=== PATIENT | male | born 1940 | race Caucasian/White ===

== ENCOUNTER 2021-05-16 03:21 | Outpatient (CLI) | payer MEDICARE, SELFPAY ==
[2021-05-16 14:08] LABS: Source Nasal/Nares
[2021-05-16 17:40] LABS: COVID-19 PCR Negative (Negative)
== END 2021-05-16 03:22 | disposition home or self-care (01) ==
LOC: LBO 03:21
PROVIDERS: PCP Neuromusculoskeletal Medicine & OMM; Visit Provider Ophthalmology
DX: Z20.822 Contact with and (suspected) exposure to COVID-19 (principal); Z01.818 Encounter for other preprocedural examination
CPT/HCPCS: 87635

== ENCOUNTER 2021-05-19 11:52 | Day surgery (SDC) | payer MEDICARE, SELFPAY ==
[2021-05-19 12:11] VITALS: BP 169/87; PULSE 77; RESP 16; TEMP 36.3; O2SAT 99
[2021-05-19] MEDS: Tropicam./Phenyleph. (1/2.5%) 5 ML BTL OS ×3 (12:28→12:38)
--- NOTE | 2021-05-19 13:10 | ANES.PREOP_ITS ---
General Info Date of Service Date Performed: 05/19/21 Height: 5 ft 4 in Weight: 60.2 kg Body Mass Index (BMI): 22.8 Surgical Procedure: Operation Date: 05/19/21 15:40 Proposed Procedures Side Surgeon p Cataract Extraction with IOL Implant Left Alonso Barth MD Meds Allergies and Home Medications Allergies Allergy/AdvReac Type Severity Reaction Status Date / Time Penicillins Allergy Unknown Unverified 05/16/21 11:29 Home Medication Medication Instructions Recorded coQ10 (ubiquinol) 200 mg PO DAILY 05/15/21 cyanocobalamin (vitamin B-12) 1 tab PO DAILY 05/15/21 [Vitamin B-12] lisinopril 20 mg PO DAILY 05/15/21 multivitamin 1 tab PO DAILY 05/15/21 tamsulosin 0.4 mg PO DAILY 05/15/21 Current Visit Medications: Current Medications Generic Name Dose Route Start Last Admin Trade Name Freq PRN Reason Stop Dose Admin Acetaminophen 1,000 mg 05/19/21 06:58 Acetaminophen 500 Mg Tab PO Q4H PRN PRN Miscellaneous Medication 0 ml 05/19/21 06:58 Prednisolone 1%, Moxifloxacin 0.5%, Nepafenac 0.1% 5ml Btl OS DIRECTED LANDRY Miscellaneous Medication 0 ml 05/19/21 06:58 05/19/21 12:38 Tropicam./Phenyleph. (1/2.5%) 5 Ml Btl OS 1 drp DIRECTED LANDRY Administration Tetracaine HCl 0 ml 05/19/21 06:58 Tetracaine 0.5% 4 Ml Btl OS DIRECTED LANDRY PFSH Medical History Medical History Anemia Chronic deep vein thrombosis (DVT) of popliteal vein of right lower extremity 2015 Complete fecal incontinence Pt. denies this, states uriniation Disorder of vein Hepatitis C History of Mohs micrographic surgery for skin cancer Hypertensive disorder Impotence Left sided sciatica Localized edema Pain in right wrist Phlebosclerosis Raised prostate specific antigen Surgical History Surgical History (Updated 05/19/21 @ 12:24 by John Larsen) Hx of basal cell carcinoma excision Hx of tonsillectomy Tobacco Smoking/Tobacco Use Status: Current-Occasional Tobacco Type: cigars Alcohol Alcohol Intake: current Alcohol intake frequency: a few times a month Alcohol type: beer Substance Use Substance use: Never Substance use type: does not use Vital Signs and Lab Results Vital Signs Most Recent Vital Signs in EMR: Most Recent Vital Signs Temp Pulse Resp BP Pulse Ox 36.3 C L 77 16 169/87 H 99 05/19/21 12:11 05/19/21 12:11 05/19/21 12:11 05/19/21 12:11 05/19/21 12:11 Lab Results Blood Type / Crossmatch: No Data to Display Complete Blood Count: No Data to Display Complete Metabolic Panel: No Data to Display Liver Function Panel: No Data to Display Coagulation Panel: No Data to Display Cardiac Panel: No Data to Display Arterial Blood Gas: No Data to Display Venous Blood Gas: No Data to Display Pancreas Panel: No Data to Display Thyroid Panel: No Data to Display Infectious Disease: Coronavirus (COVID-19)(PCR) Negative (Negative) 05/16/21 10:31 05/16/21 Coronavirus 2019 Source Nasal/Nares 05/16/21 10:31 05/16/21 Blood Cultures: No Data to Display Toxicology Panel: No Data to Display Anesthesia Assessment and Plan Anesthesia History Personal History: No History of Anesthesia Complications Family History: No Family History of Anesthesia Complications Exercise Tolerance Exercise Tolerance: Metabolic Equivalents>4 Pertinent Negatives Pertinent Negatives: No Symptoms of GERD, No Major Cardiovascular Symptoms or Co mplaints, No Major Pulmonary Symptoms or Complaints and No History of CVA/TIA Cardiac & Pulmonary Exam Cardiac Exam: Normal S1/S2 Heart Sounds Pulmonary Exam: Clear Bilateral Breath Sounds Implantable Cardiac Device Does patient have a Pacemaker or an ICD?: No Airway Exam Known Difficult Airway: No Mallampati Class: 2 Mouth Opening: Normal (> 3cm) Thyromental Distance: Greater than 3 cm Neck Range of Motion: Full ROM Neck Circumference: Normal Teeth Condition: Normal Dentition and Other (Implants bottom) ASA Classification ASA Score: ASA 2 Emergency Case?: No NPO Status NPO Status: NPO Clears >2 hours, Solids >8 hours Anesthesia Plan Resuscitation Status: Full Code Anesthesia Technique: MAC Anesthesia Airway Planned: Natural Airway Monitors Used: Standard Monitors
[2021-05-19 13:13] VITALS: BMI 22.8
[2021-05-19] MEDS: Lidocaine 2% Jelly 6 ML SYR (13:26)
[2021-05-19] MEDS: Povidone-Iodine Ophth 30 ML BTL (13:26)
[2021-05-19] MEDS: Tetracaine 0.5% 4 ML BTL OS (13:26)
[2021-05-19] MEDS: Lidocaine 1% Pres-Free 5 ML VIAL (13:33)
[2021-05-19] MEDS: Balanced Salt Soln.-PLUS 500 ML BAG (13:35)
[2021-05-19] MEDS: Duovisc Viscoelastic System EACH 1 EACH (13:35)
[2021-05-19 14:00] VITALS: BP 170/91; PULSE 74; RESP 16; TEMP 37; O2SAT 98
--- NOTE | 2021-05-19 14:02 | W.ANESPOSTOP ---
Postoperative Evaluation Date, Time and Location Date Performed: 05/19/21 Time Performed: 14:02 Patient Location: Day Surgery Unit Vital Signs Most Recent Imported Vital Signs: Most Recent Vital Signs Temp Pulse Resp BP Pulse Ox 37.0 C 74 16 170/91 H 98 05/19/21 13:11 05/19/21 13:11 05/19/21 13:11 05/19/21 13:11 05/19/21 13:11 Most Recent Manually Entered Vital Signs: Adult Blood Pressure: 161/83 Heart Rate: 89 Respirations: 12 Oxygen Saturation (%): 97 Temperature (C): 36.4 C Pain Score (0-10 Scale): 0 Pain Score Most Recent Pain Score: Most Recent Pain Score Pain Level 0 05/19/21 13:11 Assessment Mental Status: Awake (Alert & Oriented to Patient Baseline) Airway and Respiratory Function: Patent airway with normal (patient baseline) respiratory exam Cardiovascular Function: Hemodynamically Stable Hydration Status: Adequately Hydrated Nausea & Vomiting: No Nausea or Vomiting Pain: Pt. Denies Any Pain Peripheral Nerve Block: Patient did not receive a nerve block
--- NOTE | 2021-05-19 14:02 | W.PM.DSUDISC ---
Discharge Plan Disposition Patient Disposition: HOME Condition: Good Discharge Details Attending Provider: Alonso Barth Primary Care Provider: Ryne Stark [place] Meds and New Rx's Prescriptions: No Action multivitamin Tablet 1 tab PO DAILY RF: 0 lisinopril 20 mg tablet 20 mg PO DAILY RF: 0 tamsulosin 0.4 mg capsule 0.4 mg PO DAILY RF: 0 Vitamin B-12 Tablet,Chewable 1 tab PO DAILY RF: 0 coQ10 (ubiquinol) 200 mg Capsule 200 mg PO DAILY RF: 0 Discharge Instructions Stand Alone Forms: Post-op Topical Cataract, Lorena Ashraf (DSU) Discharge Orders Discharge Orders: Discharge Order (Routine); Ordered 05/19/21 Ordered By: Alonso Barth DS: Diagnosis Discharge Diagnosis (1) Nuclear sclerotic cataract of left eye: Status: Resolved
--- NOTE | 2021-05-19 14:03 | W.PM.OP ---
Date of service: 05/19/21 Time of Service: 14:03 Operative Note Operative Note DATE OF PROCEDURE: 05/19/21 PRE-OP DIAGNOSIS: Dense nuclear cataract, left eye POST-OP DIAGNOSIS: same PROCEDURE: Cataract extraction using phacoemulsification with intraocular lens implant, left eye SURGEON: Alonso Barth ANESTHESIA TYPE: Local By Surgeon and MAC Refer to Anesthesia Record PATHOLOGY: none sent COMPLICATIONS: None Patient was transported to: same day Patient's condition: stable Implants: Richar and Richar / [employer] Tecnis [id number] Indications: Progressive decreased vision due to cataract, left eye Procedure Description: CATARACT SURGERY OPERATIVE REPORT PREOPERATIVE DIAGNOSIS: 1. Dense nuclear cataract, left eye POSTOPERATIVE DIAGNOSIS: Same OPERATION: 1. Cataract extraction using phacoemulsification with posterior chamber intraocular lens implant, left eye. IOL: IOL Wastewater Manager/Model: Richar & Richar / HANY Tecnis [id number] IOL Power: + 22.5 diopters IOL Serial Number: [id number] Optic Diameter: 6.0 mm Haptic/Overall Diameter: 13.0 mm PHACO INFO: [employer] Vision System with OZil and Active Fluidics Cumulative Dispersed Energy (CDE): 48.06 seconds SURGEON: Alonso Barth MD, ALAYNA ANESTHESIA: Monitored A [facility] (MAC), with local sub-tenon's anesthetic infiltration COMPLICATIONS: None SPECIMENS: None INDICATIONS FOR PROCEDURE: The patient is an 80-year-old gentleman with history of diminished visual acuity in both eyes secondary to the development of bilateral nuclear cataract. He has a significant dense cataract in both eyes. The option of cataract surgery was offered to the patient and he felt he was symptomatic enough that he wished to proceed. PROCEDURE: The correct surgical eye was identified and marked as the left eye and the pupil was dilated in the preoperative area using mydriatics and cycloplegics. The dilated pupil size was 6.0 mm. He elected to proceed without oral sedation.. The patient was brought to the operating room where cardiopulmonary monitoring was instituted and surgical time-out was performed, confirming the correct operative eye and IOL power. Topical anesthesia was administered and ophthalmic povidone-iodine 5% was instilled into the conjunctival fornices. Lidocaine gel was applied to the cornea and the indy-ocular area was prepped with Betadine 10% solution and draped in the usual sterile fashion for intraocular surgery, including an aperture drape. A Tegaderm transparent film dressing was cut in half and used to cover the lashes and lid margins. Care was taken to sequester the lashes and lid margins under the Tegaderm dressing. A lid speculum was placed between the lids of the operative eye and the Andrez-Prakash operating microscope was maneuvered into position. Kory scissors were then used to make a conjunctival buttonhole approximately 6mm posterior to the limbus in the inferonasal quadrant. Blunt dissection was carried out to expose bare sclera, and a blunt-tipped sub-tenon?s anesthesia cannula was introduced and passed posteriorly along the globe where non-preserved plain lidocaine was injected into posterior sub-Tenon?s space. A sideport knife was used to make a paracentesis port superiorly/superiortemporally. Intraocular phenylephrine/lidocaine was injected int the anterior chamber.. The anterior chamber was filled with viscoelastic. A 2.4mm keratome knife was used to create a half-thickness groove at the limbus and then to construct a three-plane near-clear corneal tunnel extending 2.0mm into clear cornea at the 3:00 position. A flap was raised on the anterior capsule and capsulorhexis forceps were used to complete a continuous curvilinear capsulorhexis of 5.0 mm. Balanced salt solution was then used to perform cortical cleaving hydrodissection and nuclear hydrodelineation until the lens could be freely rotated within the capsular bag. The lens nucleus was then disassembled and removed within the capsular bag and iris plane using phacoemulsification. Residual cortical material was removed using the 45-degree angled silicone I/A tip with 0.3mm port. The posterior capsule was carefully polished to remove as much residual lens epithelial cells as safely possible. The capsular bag was then inflated and the anterior chamber deepened with viscoelastic. The lens implant described above was inserted into the capsular bag using the HANY [place] Injector. A Kuglen hook was used to dial the IOL into position. Residual viscoelastic was then removed first from posterior to the IOL, then from the anterior chamber using the I/A handpiece. The lens implant was noted to center nicely within the capsular bag. The incisions were stromally hydrated, and the anterior chamber was reformed using BSS. Then 0.5cc of moxifloxacin 1.0mg/ml were injected into the capsular bag and anterior chamber. The incisions were checked with a Weck spear and found to be secure. Several drops of ophthalmic povidone-iodine 5% were then applied to the eye followed by two drops of Imprimis combination prednisolone/moxifloxacin/nepafenac solution. The drapes were removed and a clear plastic protective eye shield was placed over the eye. The patient was then returned to Same Day Surgery in stable condition.
[2021-05-19 14:04] VITALS: BP 161/83; PULSE 89; RESP 12; TEMPC 36.4; O2SAT 97
== END 2021-05-19 14:50 | disposition home or self-care (01) ==
PROVIDERS: PCP Neuromusculoskeletal Medicine & OMM; Visit Provider Ophthalmology
PROC: (CPT 66984; principal; 2021-05-19 15:30)
DX: H25.12 Age-related nuclear cataract, left eye (principal)
CPT/HCPCS: 66984; V2632

== ENCOUNTER 2021-05-30 02:36 | Outpatient (CLI) | payer MEDICARE, SELFPAY ==
[2021-05-30 13:00] LABS: Source Nasal/Nares
[2021-05-30 19:24] LABS: COVID-19 PCR Negative (Negative)
== END 2021-05-30 02:37 | disposition home or self-care (01) ==
LOC: LBO 02:36
PROVIDERS: PCP Neuromusculoskeletal Medicine & OMM; Visit Provider Ophthalmology
DX: Z20.822 Contact with and (suspected) exposure to COVID-19 (principal); Z01.818 Encounter for other preprocedural examination
CPT/HCPCS: 87635

== ENCOUNTER 2021-06-02 11:15 | Day surgery (SDC) | payer MEDICARE, SELFPAY ==
[2021-06-02 11:35] VITALS: BP 163/62; PULSE 51; RESP 16; TEMP 36.4; O2SAT 98
[2021-06-02] MEDS: Tropicam./Phenyleph. (1/2.5%) 5 ML BTL OD ×3 (12:06→12:21)
--- NOTE | 2021-06-02 12:44 | W.ANESPRE ---
General Info Date of Service Date Performed: 06/02/21 Height: 5 ft 4 in Weight: 59 kg Body Mass Index (BMI): 22.3 Surgical Procedure: Operation Date: 06/02/21 14:40 Proposed Procedures Side Surgeon p Cataract Extraction with IOL Implant Right Alonso Barth MD Meds Allergies and Home Medications Allergies Allergy/AdvReac Type Severity Reaction Status Date / Time Penicillins Allergy Unknown Unverified 06/02/21 11:52 Home Medication Medication Instructions Recorded coQ10 (ubiquinol) 200 mg PO DAILY 05/15/21 cyanocobalamin (vitamin B-12) 1 tab PO DAILY 05/15/21 [Vitamin B-12] lisinopril 20 mg PO DAILY 05/15/21 multivitamin 1 tab PO DAILY 05/15/21 tamsulosin 0.4 mg PO DAILY 05/15/21 Current Visit Medications: Current Medications Generic Name Dose Route Start Last Admin Trade Name Freq PRN Reason Stop Dose Admin Acetaminophen 1,000 mg 06/02/21 06:00 Acetaminophen 500 Mg Tab PO Q4H PRN PRN Miscellaneous Medication 0 ml 06/02/21 06:00 Prednisolone 1%, Moxifloxacin 0.5%, Nepafenac 0.1% 5ml Btl OD DIRECTED LANDRY Miscellaneous Medication 0 ml 06/02/21 06:00 06/02/21 12:21 Tropicam./Phenyleph. (1/2.5%) 5 Ml Btl OD 1 drp DIRECTED LANDRY Administration Tetracaine HCl 0 ml 06/02/21 06:00 Tetracaine 0.5% 4 Ml Btl OD DIRECTED LANDRY PFSH Active Problems Active Problems: Problem Status Onset Code Nuclear sclerotic cataract of left eye H25.12 Medical History Medical History Anemia Chronic deep vein thrombosis (DVT) of popliteal vein of right lower extremity 2016 Complete fecal incontinence Pt. denies this, states uriniation Disorder of vein Hepatitis C History of Mohs micrographic surgery for skin cancer Hypertensive disorder Impotence Left sided sciatica Localized edema Pain in right wrist Phlebosclerosis Raised prostate specific antigen Surgical History Surgical History Hx of basal cell carcinoma excision Hx of tonsillectomy Tobacco Smoking/Tobacco Use Status: Current-Occasional Tobacco Type: cigars Alcohol Alcohol Intake: current Alcohol intake frequency: a few times a month Alcohol type: beer Substance Use Substance use: Rarely Substance use type: former substance user Vital Signs and Lab Results Vital Signs Most Recent Vital Signs in EMR: Most Recent Vital Signs Temp Pulse Resp BP Pulse Ox 36.4 C L 51 L 16 163/62 H 98 06/02/21 11:35 06/02/21 11:35 06/02/21 11:35 06/02/21 11:35 06/02/21 11:35 Lab Results Blood Type / Crossmatch: No Data to Display Complete Blood Count: No Data to Display Complete Metabolic Panel: No Data to Display Liver Function Panel: No Data to Display Coagulation Panel: No Data to Display Cardiac Panel: No Data to Display Arterial Blood Gas: No Data to Display Venous Blood Gas: No Data to Display Pancreas Panel: No Data to Display Thyroid Panel: No Data to Display Infectious Disease: Coronavirus (COVID-19)(PCR) Negative (Negative) 05/30/21 11:18 05/30/21 Coronavirus 2019 Source Nasal/Nares 05/30/21 11:18 05/30/21 Blood Cultures: No Data to Display Toxicology Panel: No Data to Display Anesthesia Assessment and Plan Anesthesia History Personal History: No History of Anesthesia Complications Family History: No Family History of Anesthesia Complications Exercise Tolerance Exercise Tolerance: Metabolic Equivalents>4 Pertinent Negatives Pertinent Negatives: No Symptoms of GERD, No Major Cardiovascular Symptoms or Complaints, No Major Pulmonary Symptoms or Complaints and No History of CVA/TIA Cardiac & Pulmonary Exam Cardiac Exam: Normal S1/S2 Heart Sounds Pulmonary Exam: Clear Bilateral Breath Sounds Implantable Cardiac Device Does patient have a Pacemaker or an ICD?: No Airway Exam Known Difficult Airway: No Mallampati Class: 2 Mouth Opening: Normal (> 3cm) Thyromental Distance: Greater than 3 cm Neck Range of Motion: Full ROM Neck Circumference: Normal Teeth Condition: Normal Dentition and Other (Implants bottom) ASA Classification ASA Score: ASA 2 Emergency Case?: No NPO Status NPO Status: NPO Clears >2 hours, Solids >8 hours Anesthesia Plan Resuscitation Status: Full Code Anesthesia Technique: MAC Anesthesia Airway Planned: Natural Airway Monitors Used: Standard Monitors
[2021-06-02 12:45] VITALS: BMI 22.3
[2021-06-02] MEDS: Povidone-Iodine Ophth 30 ML BTL (12:53)
[2021-06-02] MEDS: Tetracaine 0.5% 4 ML BTL OD (12:53)
[2021-06-02] MEDS: Lidocaine 2% Jelly 6 ML SYR (12:53)
[2021-06-02] MEDS: Trypan Blue 0.06% 0.5 ML SYR (13:00)
[2021-06-02] MEDS: Balanced Salt Soln.-PLUS 500 ML BAG (13:04)
[2021-06-02] MEDS: Duovisc Viscoelastic System EACH 1 EACH (13:05)
--- NOTE | 2021-06-02 13:30 | W.PM.DSUDISC ---
Discharge Plan Disposition Patient Disposition: HOME Condition: Good Discharge Details Attending Provider: Alonso Barth Primary Care Provider: Ryne Stark [place] Meds and New Rx's Prescriptions: No Action multivitamin Tablet 1 tab PO DAILY RF: 0 lisinopril 20 mg tablet 20 mg PO DAILY RF: 0 tamsulosin 0.4 mg capsule 0.4 mg PO DAILY RF: 0 Vitamin B-12 Tablet,Chewable 1 tab PO DAILY RF: 0 coQ10 (ubiquinol) 200 mg Capsule 200 mg PO DAILY RF: 0 Discharge Instructions Stand Alone Forms: Post-op Topical Cataract, Lorena Ashraf (DSU) Discharge Orders Discharge Orders: Discharge Order (Routine); Ordered 06/02/21 Ordered By: Alonso Barth DS: Diagnosis Discharge Diagnosis (1) Nuclear sclerotic cataract of right eye: Status: Resolved
[2021-06-02 13:32] VITALS: BP 177/74; PULSE 82; RESP 18; TEMP 36.7; O2SAT 98
--- NOTE | 2021-06-02 13:33 | ROE_ITS ---
Date of service: 06/02/21 Time of Service: 13:33 Operative Note Operative Note DATE OF PROCEDURE: 06/02/21 PRE-OP DIAGNOSIS: Dense nuclear cataract, right eye Poor red reflex, right eye secondary to cataract POST-OP DIAGNOSIS: same PROCEDURE: Cataract extraction using phacoemulsification with intraocular lens implantation, right eye, using capsular staining with Vision Blue SURGEON: Alonso Barth ANESTHESIA TYPE: Local By Surgeon and MAC Refer to Anesthesia Record PATHOLOGY: none sent COMPLICATIONS: None Patient was transported to: same day Patient's condition: stable Implants: Richar and Richar / [employer] Tecnis [id number] Indications: Progressive visual loss due to cataract, right eye Procedure Description: CATARACT SURGERY OPERATIVE REPORT PREOPERATIVE DIAGNOSIS: 1. Dense nuclear cataract, right eye 2. Poor red reflex secondary to #1 POSTOPERATIVE DIAGNOSIS: Same OPERATION: 1. Cataract extraction using phacoemulsification with posterior chamber intraocular lens implant, right eye. 2. Capsular staining with Vision Blue IOL: IOL Transport Truck Driver/Model: Richar & Richar / HANY Tecnis [id number] IOL Power: + 22.5 diopters IOL Serial Number: [id number] Optic Diameter: 6.0mm Haptic/Overall Diameter: 13.0mm PHACO INFO: [employer]et [employer] Vision System with OZil and Active Fluidics Cumulative Dispersed Energy (CDE): 26.69 seconds SURGEON: Alonso Barth MD, ALAYNA ANESTHESIA: Monitored Anesthesia Care (MAC), with local sub-tenon's anesthetic infiltration COMPLICATIONS: None SPECIMENS: None INDICATIONS FOR PROCEDURE: The patient is an 80-year-old gentleman with history of diminished visual acuity in both eyes secondary to the development of dense bilateral nuclear cataract. He has already undergone cataract surgery in the left eye and is doing well postoperatively. He now presents for cataract surgery in the right eye. PROCEDURE: The correct surgical eye was identified and marked as the right eye and the pupil was dilated in the preoperative area using mydriatics and cycloplegics. The dilated pupil size was 6.0 mm. He elected to proceed without oral sedation.. The patient was brought to the operating room where cardiopulmonary monitoring was instituted and surgical time-out was performed, confirming the correct operative eye and IOL power. Topical anesthesia was administered and ophthalmic povidone-iodine 5% was instilled into the conjunctival fornices. Lidocaine gel was applied to the cornea and the indy-ocular area was prepped with Betadine 10% solution and draped in the usual sterile fashion for intraocular surgery, including an aperture drape. A Tegaderm transparent film dressing was cut in half and used to cover the lashes and lid margins. Care was taken to sequester the lashes and lid margins under the Tegaderm dressing. A lid speculum was placed between the lids of the operative eye and the Andrez-Prakash operating microscope was maneuvered into position. Kory scissors were then used to make a conjunctival buttonhole approximately 6mm posterior to the limbus in the inferonasal quadrant. Blunt dissection was carried out to expose bare sclera, and a blunt-tipped sub-tenon?s anesthesia cannula was introduced and passed posteriorly along the globe where non- preserved plain lidocaine was injected into posterior sub-Tenon?s space. A sideport knife was used to make a paracentesis port inferotemporally. Intraocular phenylephrine/lidocaine was injected into the anterior chamber. Air was injected into the anterior chamber, followed by Vision Blue, which was painted over the anterior capsule and then irrigated out with BSS. The anterior chamber was filled with viscoelastic. A 2.4mm keratome knife was used to create a half-thickness groove at the limbus and then to construct a three-plane near- clear corneal tunnel extending 2.0mm into clear cornea superiortemporally. A flap was raised on the anterior capsule and capsulorhexis forceps were used to complete a continuous curvilinear capsulorhexis of 4.8 mm. Balanced salt solution was then used to perform cortical cleaving hydrodissection and nuclear hydrodelineation until the lens could be freely rotated within the capsular bag. The lens nucleus was then disassembled and removed within the capsular bag and iris plane using phacoemulsification. Additional Viscoat was injected into the anterior chamber during phacoemulsification to protect the corneal endothelium. Residual cortical material was removed using the I/A handpiece. The posterior capsule was carefully polished to remove as much residual lens epithelial cells as safely possible. The capsular bag was then inflated and the anterior chamber deepened with viscoelastic. The lens implant described above was inserted into the capsular bag using the HANY [place] Injector. A Kuglen hook was used to dial the IOL into position. Residual viscoelastic was then removed first from posterior to the IOL, then from the anterior chamber using the I/A handpiece. The lens implant was noted to center nicely within the capsular bag. The incisions were stromally hydrated, and the anterior chamber was reformed using BSS. Then 0.5cc of moxifloxacin 1.0mg/ml were injected into the capsular bag and anterior chamber. The incisions were checked with a Weck spear and found to be secure. Several drops of ophthalmic povidone-iodine 5% were then applied to the eye followed by two drops of Imprimis combination prednisolone/moxifloxacin/nepafenac solution. The drapes were removed and a clear plastic protective eye shield was placed over the eye. The patient was then returned to Same Day Surgery in stable condition.
--- NOTE | 2021-06-02 13:50 | W.ANESPOSTOP ---
Postoperative Evaluation Date, Time and Location Date Performed: 06/02/21 Time Performed: 13:32 Patient Location: Day Surgery Unit Vital Signs Most Recent Imported Vital Signs: Most Recent Vital Signs Temp Pulse Resp BP Pulse Ox 36.7 C 82 18 177/74 H 98 06/02/21 13:32 06/02/21 13:32 06/02/21 13:32 06/02/21 13:32 06/02/21 13:32 Pain Score Most Recent Pain Score: Most Recent Pain Score Pain Level 0 06/02/21 13:32 Assessment Mental Status: Awake (Alert & Oriented to Patient Baseline) Airway and Respiratory Function: Patent airway with normal (patient baseline) respiratory exam Cardiovascular Function: Hemodynamically Stable Hydration Status: Adequately Hydrated Nausea & Vomiting: No Nausea or Vomiting Pain: Pt. Denies Any Pain Peripheral Nerve Block: Patient did not receive a nerve block
== END 2021-06-02 14:32 | disposition home or self-care (01) ==
PROVIDERS: PCP Neuromusculoskeletal Medicine & OMM; Visit Provider Ophthalmology
PROC: (CPT 66984; principal; 2021-06-02 14:30)
DX: H25.11 Age-related nuclear cataract, right eye (principal); I10 Essential (primary) hypertension; D64.9 Anemia, unspecified; F17.290 Nicotine dependence, other tobacco product, uncomplicated
CPT/HCPCS: 66984; V2632

== ENCOUNTER 2021-06-09 12:09 | Day surgery (SDC) | payer MEDICARE, SELFPAY ==
[2021-06-09 12:35] LABS: Source Nasal/Nares
[2021-06-09 12:40] VITALS: BP 179/87; PULSE 58; RESP 16; TEMP 36.6; O2SAT 100
[2021-06-09 13:15] LABS: COVID-19 PCR Negative (Negative)
--- NOTE | 2021-06-09 13:21 | W.PREOPHP ---
Date of service: 06/09/21 Time of Service: : Assessment and Plan Assessment and plan (1) Cataract (lens) fragments in eye following cataract surgery, right eye: Status: Acute Assessment and plan: Assessment: Retained nuclear fragment, right eye, following cataract surgery 7 days ago. Now with secondary anterior segment inflammation, elevated pressure, and corneal edema. Plan: Return to OR for removal of nuclear fragment, right eye History of Present Illness History of Present Illness Chief Complaint: Retained nuclear fragment/lens material, right eye Narrative: The patient is an 80-year-old male who underwent cataract surgery in the right eye on 06/02/2021. Surgery was uncomplicated, but was noted to have a dense cataract. He presented to the office 2 days ago with complaints of progressive decreased vision. He was noted to have corneal edema with an elevated intraocular pressure, with anterior segment inflammation. A small nuclear fragment was present in the anterior chamber angle inferiorly. Review of Systems All systems reviewed & are unremarkable except as noted in HPI and below PFSH Active Problem List Cataract (lens) fragments in eye following cataract surgery, right eye (Acute) Medical History Anemia Chronic deep vein thrombosis (DVT) of popliteal vein of right lower extremity 2016 Complete fecal incontinence Pt. denies this, states uriniation Disorder of vein Hepatitis C History of Mohs micrographic surgery for skin cancer Hypertensive disorder Impotence Left sided sciatica Localized edema Pain in right wrist Phlebosclerosis Raised prostate specific antigen Surgical History Hx of basal cell carcinoma excision Hx of tonsillectomy Social History Smoking/Tobacco Use Status: Current-Occasional Tobacco Type: cigars Smoking risk assessment performed?: Yes Alcohol Intake: current Alcohol Intake frequency: a few times a month Alcohol type: beer Drug use: Rarely Substance use type: former substance user Do you feel safe at home: Yes Do you feel safe in your relationship?: Yes Meds Allergies and Home Medications Allergies Allergy/AdvReac Type Severity Reaction Status Date / Time Penicillins Allergy Unknown Unverified 06/09/21 12:48 Home Medications Medication Instructions Recorded Confirmed Type coQ10 (ubiquinol) 200 mg PO DAILY 05/15/21 06/09/21 History cyanocobalamin (vitamin B-12) 1 tab PO DAILY 05/15/21 06/09/21 History [Vitamin B-12] lisinopril 20 mg PO DAILY 05/15/21 06/09/21 History multivitamin 1 tab PO DAILY 05/15/21 06/09/21 History tamsulosin 0.4 mg PO DAILY 05/15/21 06/09/21 History Exam Eyes Other: In the right eye there is a small less than 2 mm x 2 mm dense brown nuclear fragment in the anterior chamber angle. Moderate corneal edema is present in the right eye, as well as moderate anterior segment inflammation. Resp Auscultation: clear to auscultation bilaterally Cardio Rate: regular rate Rhythm: regular rhythm Results Labs Labs: Laboratory Results - last 24 hr 06/09/21 12:22 COVID-19 Source Nasal/Nares Last Vital Signs Temp 36.6 C 06/09/21 12:40 Pulse 58 L 06/09/21 12:40 Resp 16 06/09/21 12:40 BP 179/87 H 06/09/21 12:40 Pulse Ox 100 06/09/21 12:40
--- NOTE | 2021-06-09 13:27 | W.ANESPRE ---
General Info Date of Service Date Performed: 06/09/21 Height: 5 ft 4 in Weight: 57.8 kg Body Mass Index (BMI): 21.9 Surgical Procedure: Operation Date: 06/09/21 16:40 Proposed Procedures Side Surgeon p Cataract Extraction with IOL Implant removal of retained lens material Right Alonso Barth MD Meds Allergies and Home Medications Allergies Allergy/AdvReac Type Severity Reaction Status Date / Time Penicillins Allergy Unknown Unverified 06/09/21 12:48 Home Medication Medication Instructions Recorded coQ10 (ubiquinol) 200 mg PO DAILY 05/15/21 cyanocobalamin (vitamin B-12) 1 tab PO DAILY 05/15/21 [Vitamin B-12] lisinopril 20 mg PO DAILY 05/15/21 multivitamin 1 tab PO DAILY 05/15/21 tamsulosin 0.4 mg PO DAILY 05/15/21 Current Visit Medications: Current Medications Generic Name Dose Route Start Last Admin Trade Name Freq PRN Reason Stop Dose Admin Acetaminophen 1,000 mg 06/09/21 12:20 Acetaminophen 500 Mg Tab PO Q4H PRN PRN Miscellaneous Medication 0 ml 06/09/21 12:20 Prednisolone 1%, Moxifloxacin 0.5%, Nepafenac 0.1% 5ml Btl OD DIRECTED LANDRY Tetracaine HCl 0 ml 06/09/21 12:20 Tetracaine 0.5% 4 Ml Btl OD DIRECTED LANDRY PFSH Active Problems Active Problems: Problem Status Onset Code Cataract (lens) fragments in eye following cataract surgery, right eye H59.021 Nuclear sclerotic cataract of right eye H25.11 Nuclear sclerotic cataract of left eye H25.12 Medical History Active Problem List Cataract (lens) fragments in eye following cataract surgery, right eye (Acute) Medical History Anemia Chronic deep vein thrombosis (DVT) of popliteal vein of right lower extremity 2015 Complete fecal incontinence Pt. denies this, states uriniation Disorder of vein Hepatitis C History of Mohs micrographic surgery for skin cancer Hypertensive disorder Impotence Left sided sciatica Localized edema Pain in right wrist Phlebosclerosis Raised prostate specific antigen Surgical History Surgical History Hx of basal cell carcinoma excision Hx of tonsillectomy Tobacco Smoking/Tobacco Use Status: Current-Occasional Tobacco Type: cigars Alcohol Alcohol Intake: current Alcohol intake frequency: a few times a month Alcohol type: beer Substance Use Substance use: Rarely Substance use type: former substance user Vital Signs and Lab Results Vital Signs Most Recent Vital Signs in EMR: Most Recent Vital Signs Temp Pulse Resp BP Pulse Ox 36.6 C 58 L 16 179/87 H 100 06/09/21 12:40 06/09/21 12:40 06/09/21 12:40 06/09/21 12:40 06/09/21 12:40 Lab Results Blood Type / Crossmatch: No Data to Display Complete Blood Count: No Data to Display Complete Metabolic Panel: No Data to Display Liver Function Panel: No Data to Display Coagulation Panel: No Data to Display Cardiac Panel: No Data to Display Arterial Blood Gas: No Data to Display Venous Blood Gas: No Data to Display Pancreas Panel: No Data to Display Thyroid Panel: No Data to Display Infectious Disease: Coronavirus (COVID-19)(PCR) Negative (Negative) 05/30/21 11:18 05/30/21 Coronavirus 2019 Source Nasal/Nares 06/09/21 12:22 06/09/21 Blood Cultures: No Data to Display Toxicology Panel: No Data to Display Anesthesia Assessment and Plan Anesthesia History Personal History: No History of Anesthesia Complications Family History: No Family History of Anesthesia Complications Exercise Tolerance Exercise Tolerance: Metabolic Equivalents>4 Pertinent Negatives Pertinent Negatives: No Symptoms of GERD, No Major Cardiovascular Symptoms or Complaints, No Major Pulmonary Symptoms or Complaints and No History of CVA/TIA Cardiac & Pulmonary Exam Cardiac Exam: Normal S1/S2 Heart Sounds Pulmonary Exam: Clear Bilateral Breath Sounds Implantable Cardiac Device Does patient have a Pacemaker or an ICD?: No Airway Exam Known Difficult Airway: No Mallampati Class: 2 Mouth Opening: Normal (> 3cm) Thyromental Distance: Greater than 3 cm Neck Range of Motion: Full ROM Neck Circumference: Normal Teeth Condition: Normal Dentition and Other (Implants bottom) ASA Classification ASA Score: ASA 2 Emergency Case?: No NPO Status NPO Status: NPO Clears >2 hours, Solids >8 hours Anesthesia Plan Resuscitation Status: Full Code Anesthesia Technique: MAC Anesthesia Airway Planned: Natural Airway Monitors Used: Standard Monitors
[2021-06-09 13:35] VITALS: BMI 21.9
[2021-06-09] MEDS: Tetracaine 0.5% 4 ML BTL OD ×2 (13:52→14:02)
[2021-06-09] MEDS: Povidone-Iodine Ophth 30 ML BTL (13:52)
[2021-06-09] MEDS: Balanced Salt Soln.-PLUS 500 ML BAG (13:53)
[2021-06-09] MEDS: Lidocaine 2% Jelly 6 ML SYR (13:53)
[2021-06-09] MEDS: Triamcinolone 40 MG/ML VIAL (14:09)
[2021-06-09 14:12] VITALS: BP 169/68; PULSE 64; RESP 16; TEMP 36.6; O2SAT 99
--- NOTE | 2021-06-09 14:13 | PDOC.DSDIS_ITS ---
Discharge Plan Disposition Patient Disposition: HOME Condition: Good Discharge Details Attending Provider: Alonso Barth Primary Care Provider: Ryne Stark [place] Meds and New Rx's Prescriptions: No Action multivitamin Tablet 1 tab PO DAILY RF: 0 lisinopril 20 mg tablet 20 mg PO DAILY RF: 0 tamsulosin 0.4 mg capsule 0.4 mg PO DAILY RF: 0 Vitamin B-12 Tablet,Chewable 1 tab PO DAILY RF: 0 coQ10 (ubiquinol) 200 mg Capsule 200 mg PO DAILY RF: 0 Discharge Instructions Stand Alone Forms: Post-op Topical Cataract, Lorena Ashraf (DSU) Discharge Orders Discharge Orders: Discharge Order (Routine); Ordered 06/09/21 Ordered By: Alonso Barth DS: Diagnosis Discharge Diagnosis (1) Cataract (lens) fragments in eye following cataract surgery, right eye: Status: Resolved
--- NOTE | 2021-06-09 14:14 | ROE_ITS ---
Date of service: 06/09/21 Time of Service: 14:14 Operative Note Operative Note DATE OF PROCEDURE: 06/09/21 PRE-OP DIAGNOSIS: Retained nuclear fragment/lens material, right eye POST-OP DIAGNOSIS: same PROCEDURE: Removal of retained nuclear fragment/lens material, right eye SURGEON: Alonso Barth ANESTHESIA TYPE: Local By Surgeon and MAC Refer to Anesthesia Record ESTIMATED BLOOD LOSS: 0 PATHOLOGY: none sent COMPLICATIONS: None Patient was transported to: same day Patient's condition: stable Indications: Retained nuclear fragment right eye, folowing cataract surgery 7 days ago. Now with secondary uveitis, corneal edema, and ocular hypertension Procedure Description: SURGERY OPERATIVE REPORT PREOPERATIVE DIAGNOSIS: 1. Retained nuclear fragment/lens material, right eye 2. Secondary uveitis/ocular hypertension/corneal edema, right eye POSTOPERATIVE DIAGNOSIS: Same OPERATION: 1. Removal of retained nuclear fragment/lens material, right eye PHACO INFO: JeteAviirurion Vision System with OZil and Active Fluidics Cumulative Dispersed Energy (CDE): 0.98 seconds SURGEON: Alonso Barth MD, ALAYNA ANESTHESIA: Monitored Anesthesia Care (MAC), with local sub-tenon's anesthetic infiltration COMPLICATIONS: None SPECIMENS: None INDICATIONS FOR PROCEDURE: The patient is an 80-year-old gentleman who recently underwent cataract surgery in the right eye on 06/02/2021. He returned to the office 2 days ago with complaints of progressive decreased vision in the right eye. He was noted to have significant corneal edema and elevated intraocular pressure. A nuclear fragment was noted in the inferior anterior chamber. Return to the OR for removal of nuclear fragment was recommended to relieve the corneal edema/ocular hypertension/inflammation. PROCEDURE: The correct surgical eye was identified and marked as the right eye. No dilating drops were used.. The patient was brought to the operating room where cardiopulmonary monitoring was instituted and surgical time-out was performed, confirming the correct operative eye and IOL power. Topical anesthesia was administered and ophthalmic povidone-iodine 5% was instilled into the conjunctival fornices. Lidocaine gel was applied to the cornea and the indy-ocular area was prepped with Betadine 10% solution and draped in the usual sterile fashion for intraocular surgery, including an aperture drape. A Tegaderm transparent film dressing was cut in half and used to cover the lashes and lid margins. Care was taken to sequester the lashes and lid margins under the Tegaderm dressing. A lid speculum was placed between the lids of the operative eye and the Andrez-Prakash operating microscope was maneuvered into position. Kory scissors were then used to make a conjunctival buttonhole approximately 6mm posterior to the limbus in the inferonasal quadrant. Blunt dissection was carried out to expose bare sclera, and a blunt-tipped sub-tenon?s anesthesia cannula was introduced and passed posteriorly along the globe where non-preserved plain lidocaine was injected into posterior sub-Tenon?s space. A [employer] nucleus manipulator was used to reopen the inferotemporal side-port incision, and the superior temporal phaco incision. Miostat was injected into the anterior chamber. Significant central corneal edema was present as well as dense peripheral corneal arcus. The lens fragment was difficult to identify. Healon was injected into the anterior chamber, the inferior angle was swept with a [place] nucleus manipulator and the fragment was brought centrally. The phaco handpiece was then used to emulsify the fragment using minimal phaco energy in the central anterior chamber. Residual viscoelastic was then removed first from the anterior chamber using the I/A handpiece. Care was taken to assure that no remaining fragments were left in the anterior chamber angle. The incisions were stromally hydrated, and the anterior chamber was reformed using BSS. Then 0.5cc of moxifloxacin 1.0mg/ml were injected into the capsular bag and anterior chamber. The incisions were checked with a Weck spear and found to be secure. At the conclusion of the procedure, Kenalog 20 mg in 0.5 cc were injected into posterior sub-tenon's space. Several drops of ophthalmic povidone-iodine 5% were then applied to the eye followed by two drops of Imprimis combination prednisolone/moxifloxacin/nepafenac solution. The drapes were removed and a clear plastic protective eye shield was placed over the eye. The patient was then returned to Same Day Surgery in stable condition.
--- NOTE | 2021-06-09 14:18 | W.ANESPOSTOP ---
Postoperative Evaluation Date, Time and Location Date Performed: 06/09/21 Time Performed: 14:18 Patient Location: Day Surgery Unit Vital Signs Most Recent Imported Vital Signs: Most Recent Vital Signs Temp Pulse Resp BP Pulse Ox 36.6 C 58 L 16 179/87 H 100 06/09/21 12:40 06/09/21 12:40 06/09/21 12:40 06/09/21 12:40 06/09/21 12:40 Most Recent Manually Entered Vital Signs: Adult Blood Pressure: 169/68 Heart Rate: 67 Respirations: 14 Oxygen Saturation (%): 100 Temperature (C): 36.6 C Pain Score (0-10 Scale): 0 Pain Score Most Recent Pain Score: Most Recent Pain Score Pain Level 0 06/09/21 12:40 Assessment Mental Status: Awake (Alert & Oriented to Patient Baseline) Airway and Respiratory Function: Patent airway with normal (patient baseline) respiratory exam Cardiovascular Function: Hemodynamically Stable Hydration Status: Adequately Hydrated Nausea & Vomiting: No Nausea or Vomiting Pain: Pt. Denies Any Pain Peripheral Nerve Block: Patient did not receive a nerve block
[2021-06-09 14:19] VITALS: BP 169/68; PULSE 67; RESP 14; TEMPC 36.6; O2SAT 100
== END 2021-06-09 15:34 | disposition home or self-care (01) ==
PROVIDERS: PCP Neuromusculoskeletal Medicine & OMM; Visit Provider Ophthalmology
PROC: 085J3ZZ Destruction of Right Lens, Percutaneous Approach (ICD-10-PCS; CPT 66850; principal; 2021-06-09 16:30)
DX: H59.021 Cataract (lens) fragments in eye following cataract surgery, right eye (principal); H20.041 Secondary noninfectious iridocyclitis, right eye; H18.231 Secondary corneal edema, right eye; H40.051 Ocular hypertension, right eye
CPT/HCPCS: 66850; 87635

== ENCOUNTER → 2022-12-15 12:34 | Outpatient (BNVA) | payer MEDICARE, SELFPAY | PROVIDERS: PCP Neuromusculoskeletal Medicine & OMM; Referring Provider Neuromusculoskeletal Medicine & OMM; Visit Provider Nurse Practitioner Gerontology | DX: N40.0 Benign prostatic hyperplasia without lower urinary tract symptoms (principal); R97.20 Elevated prostate specific antigen [PSA] | CPT/HCPCS: 51798; 99214 ==

== ENCOUNTER → 2023-02-16 08:25 | Outpatient (BNVA) | payer MEDICARE, SELFPAY | PROVIDERS: PCP Neuromusculoskeletal Medicine & OMM; Referring Provider Neuromusculoskeletal Medicine & OMM; Visit Provider Nurse Practitioner Gerontology | DX: R97.20 Elevated prostate specific antigen [PSA] (principal) | CPT/HCPCS: 99442 ==

== ENCOUNTER 2023-03-16 14:50 | Outpatient (CLI) | payer MEDICARE, SELFPAY | END 2023-03-16 14:51 | disposition home or self-care (01) | LOC: ORDER INT 14:50 | PROVIDERS: PCP Neuromusculoskeletal Medicine & OMM; Visit Provider Urology ==

== ENCOUNTER → 2023-03-16 15:03 | Outpatient (BNVA) | payer MEDICARE, SELFPAY | PROVIDERS: PCP Neuromusculoskeletal Medicine & OMM; Referring Provider Neuromusculoskeletal Medicine & OMM; Visit Provider Urology | DX: C61 Malignant neoplasm of prostate (principal) | CPT/HCPCS: 55700; 76872 ==

== ENCOUNTER 2023-03-16 15:54 | Outpatient (REF) | payer MEDICARE, SELFPAY ==
--- NOTE | 2023-03-16 15:20 | PROST_PTH ---
PATIENT: David Floyd LOC: [facility] U#:[id number] AGE/SX: 82/M ROOM: RE03/16/[address]: Aiden Westfall MD : [id number] BED: DIS: 03/16/2023 SPEC #: [id number] RECD: 03/16/23 17:11 STATUS: MAYUR RE #: [id number] ELIER: 03/16/23 15:[address]: Aiden Westfall DEPT: Surgical Specimen RECD BY: Mary Morrison ENTERED: 03/16/23 17:12 SP TYPE: PROST OTHR DR: Ryne Stark Tissues: 1 - PROSTATE NEEDLE BIOPSY 2 - PROSTATE NEEDLE BIOPSY 3 - PROSTATE NEEDLE BIOPSY 4 - PROSTATE NEEDLE BIOPSY 5 - PROSTATE NEEDLE BIOPSY 6 - PROSTATE NEEDLE BIOPSY 7 - PROSTATE NEEDLE BIOPSY 8 - PROSTATE NEEDLE BIOPSY 9 - PROSTATE NEEDLE BIOPSY 10 - PROSTATE NEEDLE BIOPSY 11 - PROSTATE NEEDLE BIOPSY 12 - PROSTATE NEEDLE BIOPSY Procedures: GROSS AND MICRO LEVEL 4 IMMUNOPEROXIDASE STAIN Comments: [id number]
== END 2023-03-16 15:55 | disposition home or self-care (01) ==
LOC: LBN 15:54
PROVIDERS: PCP Neuromusculoskeletal Medicine & OMM; Visit Provider Urology
DX: R97.20 Elevated prostate specific antigen [PSA] (principal)
CPT/HCPCS: 88305; 88361

== ENCOUNTER → 2023-03-30 15:05 | Outpatient (BNVA) | payer MEDICARE, SELFPAY | PROVIDERS: PCP Neuromusculoskeletal Medicine & OMM; Referring Provider Neuromusculoskeletal Medicine & OMM; Visit Provider Urology | DX: C61 Malignant neoplasm of prostate (principal) | CPT/HCPCS: 99215 ==

== ENCOUNTER → 2023-04-19 01:31 | Outpatient (CLI) | payer MEDICARE, SELFPAY ==
--- NOTE | 2023-04-19 08:15 | DI.NM_ITS ---
Exam(s) NM BONE SCAN WHOLE BODY GRP EXAM: NM BONE SCAN WHOLE BODY GRP CLINICAL HISTORY: ? mets,PROSTATE CA,C61,. TECHNIQUE: Injected Dose: 25 mCi Tc-99m MDP Delayed Images: 2-3 hours. COMPARISON: CT CT ABDOMEN PELVIS W from 04/19/2023 FINDINGS: Symmetric axial uptake. Bilateral renal excretion is identified. No focal area of intense suspicious uptake is seen. There is a small focus of increased radiotracer uptake on the concave side of the lum bar scoliosis which is likely degenerative in nature. This corresponds to degenerative findings seen on the CT scan from the same day. IMPRESSION: No evidence of metastatic disease. DATA REPOSITORY:
[2023-04-19 09:34] LABS: CREATININE 1.2 mg/dL (0.70-1.30)
[2023-04-19] MEDS: Barium Sulfate 2% W/V-Berry Smoothie 450 ML BTL 900 ML PO (09:45)
[2023-04-19] MEDS: Omnipaque 350 MG/ML 100 ML BTL IJ (11:29)
[2023-04-19] MEDS: Normal Saline - Diluent 50 ML VIAL IJ (11:29)
--- NOTE | 2023-04-19 11:30 | DI.CT_ITS ---
Exam(s) CT ABDOMEN PELVIS W EXAM: CT ABDOMEN PELVIS W CLINICAL HISTORY: ?METS,PROSTATE CA,C61 TECHNIQUE: Imaging Protocol: Axial computed tomography images with coronal and sagittal reformatted images were created and reviewed CONTRAST MATERIAL: Intravenous: Omnipaque 350 Contrast volume:100 mL Oral: Yes COMPARISON: No priors for comparison. FINDINGS: The examination is limited due to patient motion artifact. ABDOMEN: Lung Bases: Coronary artery calcifications and/or stents are present. Mild cardiomegaly. There is a small hiatal hernia. Liver: Normal density. No measurable mass. Portal, Superior Mesenteric, and Splenic Veins: Unremarkable. Gallbladder and Biliary Tract: No radiodense calculus or dilation. Pancreas: Normal density, no abnormal calcifications or inflammatory process. Spleen: Normal. Adrenals: No masses seen. Kidneys: Normal size, contour and axis. No radiodense stones or obstructive uropathy. There is a 1 cm cyst on the right kidney. No follow-up is recommended. Abdominal Aorta: Abdominal portion non-dilated. Atherosclerosis. Bowel: There is diverticulosis of the colon but no evidence of acute diverticulitis. The duodenum do es not appear to cross the midline consistent with malrotation. There is no evidence of bowel obstru ction or bowel wall thickening. There is no evidence of appendicitis. Peritoneal Cavity: No ascites, collection or mesenteric inflammatory response. No free air. Lymph Nodes: Within normal limits. Bones: Within normal limits for the patient's age. There are no aggressive osseous lesions. Soft Tissues: There are postsurgical changes in the anterior abdominal wall PELVIS: Bladder: There is mild thickening of the wall of the urinary bladder. This may be due to a chronic b ladder outlet obstruction. Reproductive Organs: The prostate gland is enlarged impinging upon the base of the urinary bladder. Lymph Nodes: Within normal limits. Bones: Within normal limits for the patient's age. IMPRESSION: 1. Examination limited by patient motion artifact 2. Enlarged prostate gland. 3. No evidence of abdominal or pelvic metastatic disease. 4. Diffuse mild thickening of the wall of the urinary bladder. This may be due to chronic bladder ou tlet obstruction. Cystitis cannot be entirely excluded. Please correlate clinically. RADIATION DOSE DELIVERED: Total DLP DATA REPOSITORY: All CT scans at this facility are submitted to the National Radiology Data Registry (NRDR) Dose Index Registry (DIR) with the [employer] (ACR). RADIATION OPTIMIZATION: All CT scans at this facility use at least one of these dose optimization te chniques: automated exposure control; mA and/or kV adjustment per patient size (includes targeted exa ms where dose is matched to clinical indication); or iterative reconstruction.
== END ==
PROVIDERS: PCP Family Medicine; Visit Provider Urology
DX: C61 Malignant neoplasm of prostate (principal)
CPT/HCPCS: 78306; 74177; 82565; J3490

== ENCOUNTER → 2023-04-22 09:57 | Outpatient (BNVA) | payer MEDICARE, SELFPAY | PROVIDERS: PCP Family Medicine; Referring Provider Neuromusculoskeletal Medicine & OMM; Visit Provider Nurse Practitioner Gerontology | DX: C61 Malignant neoplasm of prostate (principal) | CPT/HCPCS: 96402; J9217 ==

== ENCOUNTER → 2023-05-31 14:50 | Outpatient (BNVA) | payer MEDICARE, SELFPAY | PROVIDERS: PCP Family Medicine; Referring Provider Family Medicine; Visit Provider Nurse Practitioner Gerontology | DX: C61 Malignant neoplasm of prostate (principal) | CPT/HCPCS: 96402; J9217 ==

== ENCOUNTER → 2023-08-31 12:57 | Outpatient (BNVA) | payer MEDICARE, SELFPAY | PROVIDERS: PCP Family Medicine; Referring Provider Family Medicine; Visit Provider Urology | DX: C61 Malignant neoplasm of prostate (principal) | CPT/HCPCS: 96402; J9217 ==

== ENCOUNTER 2023-08-31 15:22 | Outpatient (CLI) | payer MEDICARE, SELFPAY ==
[2023-09-01 17:30] LABS: PSA, Ultrasensitive 0.37 ng/mL (<= 7.2)
== END 2023-08-31 15:23 | disposition home or self-care (01) ==
LOC: LBO 15:23
PROVIDERS: PCP Family Medicine; Visit Provider Urology
DX: C61 Malignant neoplasm of prostate (principal)
CPT/HCPCS: 36415; 84153; 96402; J9217

== ENCOUNTER → 2024-03-07 13:49 | Outpatient (BNVA) | payer MEDICARE, SELFPAY | PROVIDERS: PCP Family Medicine; Visit Provider Urology | DX: C61 Malignant neoplasm of prostate (principal) | CPT/HCPCS: 96402; J9217 ==

== ENCOUNTER 2024-05-05 14:29 | Emergency (ER) | payer MEDICARE, SELFPAY ==
[2024-05-05 14:30] VITALS: BP 199/78; PULSE 56; RESP 16; TEMP 36.9; O2SAT 96
[2024-05-05 14:56] VITALS: BP 199/78; PULSE 56; RESP 16; TEMP 36.9; O2SAT 96
[2024-05-05 15:07] LABS: Bilirubin Negative (Negative); Blood Negative (Negative); Clarity Clear (Clear); Glucose Negative (Negative); Ketones Negative (Negative); Leukocyte Esterase Negative (Negative); Nitrite Negative (Negative); Urobilinogen 0.2 mg/dL (Up to 0.2)
--- NOTE | 2024-05-05 15:07 | W.ED.GENAD ---
Discharge Plan Discharge Details Chief Complaint: FlankPain Primary Care Provider: Antonio Sandra ED Provider: Sadi Johnson Home Meds and New Rx's Prescriptions: No Action sertraline [Zoloft] 25 mg tablet 25 mg PO DAILY ferrous sulfate 324 mg (65 mg iron) tablet,delayed release (DR/EC) 324 mg PO DAILY trazodone 50 mg tablet 50 mg PO DAILY lisinopril 20 mg tablet 30 mg PO DAILY Patient Comments: TAKE ONE TABLET BY MOUTH EVERY DAY Vitamin B-12 Tablet,Chewable 1 tab PO DAILY tamsulosin 0.4 mg capsule 0.8 mg PO DAILY Patient Comments: TAKE TWO CAPSULES BY MOUTH EVERY DAY HPI General Date/Time Provider Initiated Documentation: 05/05/24 14:31. HPI Narrative: 83 year-old male presents to ED today by POV/ambulating with a chief complaint of L flank pain with onset over the past week, seen at [facility] today. Quality described as L flank pain, no radiation to dysuria, urinary retention, chest pain, shortness of breath, nausea, vomiting, bowel changes. Severity is described as moderate. Palliating factors include nothing specific. Provoking factors include going up and down stairs. Events leading up to the incident/Associated Symptoms: Patient denies history of known renal stones. Patient not anticoagulated. Related Data Home Medications ?Medication ?Instructions ?Recorded ?Confirmed cyanocobalamin (vitamin B-12) 1 tab PO DAILY 05/15/21 05/05/24 lisinopril 20 mg tablet 30 mg PO DAILY 05/15/21 05/05/24 trazodone 50 mg tablet 50 mg PO DAILY 12/11/22 05/05/24 tamsulosin 0.4 mg capsule 0.8 mg PO DAILY 12/15/22 05/05/24 ferrous sulfate 324 mg (65 mg 324 mg PO DAILY 08/31/23 05/05/24 iron) tablet,delayed release sertraline 25 mg tablet (Zoloft) 25 mg PO DAILY 08/31/23 05/05/24 Allergies Allergy/AdvReac Type Severity Reaction Status Date / Time Penicillins Allergy Unknown Unknown Unverified 05/05/24 14:53 General Stated Complaint: FlankPain CODY: 3 Review of Systems All systems reviewed & are unremarkable except as noted in HPI and below Exam Narrative Exam Narrative: GENERAL APPEARANCE: Frail, non-toxic, awake and alert, atraumatic, no acute distress. SKIN: Warm, pink, dry, intact, without rashes/lesions/ulcerations. HEAD: Normocephalic, atraumatic, normal hair distribution for gender/age. EYES: Normal conjunctiva, no exudates on lids/lashes. ENT: Nares patent, no circumoral cyanosis, no facial swelling NECK: Supple, trachea midline, painless cervical ROM. LUNGS/CHEST: Lungs CTA bilaterally- no rhonchi/rales/wheezes diffusely, non-labored respirations, normal A/P diameter, symmetrical expansion, no chest wall deformity HEART (CV/PV): Regular rate and rhythm without murmur, no peripheral edema, no JVD. ABDOMEN: Soft, non-distended, no guarding, L CVA tenderness to percussion, no anterior abdominal tenderness. MSK: Normal ROM, no swelling/deformity to bilateral UEs or LEs, moving all extremities without weakness, no cyanosis, spine midline without tenderness, normal curvature. NEURO: Mental Status AAOx4 - alert to person, place, time, events No facial droop, no forehead involvement. Motor: No focal weakness - strength 5/5 in bilateral UEs and LEs, proximal and distal, symmetric. Sensory: sensation intact to light touch globally. Gait NT. PSYCH: euthymic, cooperative, pleasant, appropriate speech Course Vital Signs Vital signs: Vital Signs Temperature 36.9 C 05/05/24 14:30 Pulse 56 L 05/05/24 14:30 Respiratory Rate 16 05/05/24 14:30 Blood Pressure 199/78 H 05/05/24 14:30 Pulse Oximetry 96 05/05/24 14:30 Temperature 36.9 C 05/05/24 14:56 Temperature Source Temporal Artery Scan 05/05/24 14:56 Pulse 56 L 05/05/24 14:56 Respiratory Rate 16 05/05/24 14:56 Respiratory Effort Normal, Non-Labored 05/05/24 14:42 Blood Pressure 199/78 H 05/05/24 14:56 Blood Pressure Position Sitting 05/05/24 14:56 Pulse Oximetry 96 05/05/24 14:56 Oxygen Delivery Method Room Air 05/05/24 14:56 Oxygen Flow Rate 0 05/05/24 14:56 Pain Level 8 05/05/24 14:56 Medical Decision Making This dictation utilizes [id number] dictation software and may contain unedited grammatical errors. 83 year-old male presents to ED today by POV/ambulating with a chief complaint of L flank pain with onset over the past week, seen at [facility] today. Quality described as L flank pain, no radiation to dysuria, urinary retention, chest pain, shortness of breath, nausea, vomiting, bowel changes. Severity is described as moderate. Palliating factors include nothing specific. Provoking factors include going up and down stairs. Events leading up to the incident/Associated Symptoms: Patient denies history of known renal stones. Patients' medical history: BPH, chronic right lower extremity DVT, hypertension, anemia, prostate cancer. Family and social history: Noncontributory. Pertinent exam findings / vital signs include left CVA tenderness, no anterior abdominal tenderness or peritoneal signs, benign cardiopulmonary exam, stable vitals. Differential / pathologies of concern include UTI, ureteral stone, pyelonephritis, unlikely sepsis, unlikely bowel pathology. Diagnostic studies of: -CBC, CMP, lipase, UA, CT renal without. Interventions of: -None. ED Course/Assessment/Plan: 83-year-old male presents with left leg pain ongoing for about a week, denies history of renal stones, does have some BPH and prostate cancer history but denies any urinary problems at this time, stable vitals and nontoxic presentation. I do suspect he has renal stone on the left and studies are pending at time of signout, there is no evidence of UTI on UA, there is proteinuria. Findings not consistent with urinary obstruction, sepsis or toxic presentation. Disposition of Left Flank Pain. Patient verbalized understanding of the plan and return to ED criteria and engaged in shared decision making. Medical Records Medical records reviewed: Yes I reviewed the patient's medical records. Imaging Data Radiologic Study: Attestation: I personally reviewed and interpreted this imaging study as follows: Imaging: CT Scan My impression: Pending at time of sign-out. Lab Data Lab results reviewed: Yes I reviewed the patient's lab results. Labs: Laboratory Tests Range/Units 05/05/24 14:42 Urine Color (Yellow) Yellow Urine Clarity (Clear) Clear Urine pH (5-8) 5.0 Ur Specific [place] (1.005-1.025) 1.020 Urine Protein (Neg-Trace) mg/dL 30 H Urine Ketones (Negative) mg/dL Negative Urine Blood (Negative) Negative Urine Nitrite (Negative) Negative Urine Bilirubin (Negative) Negative Urine Urobilinogen (Up to 0.2) mg/dL 0.2 Ur Leukocyte Esterase (Negative) Negative Urine Glucose (Negative) mg/dL Negative Quality:SDOH Health Related Social Needs: No Data to Display PFSH All Active Problems (Updated 03/07/24 @ 14:45 by Aiden Westfall MD) Prostate cancer (Chronic) Medical History (Updated 03/07/24 @ 14:45 by Aiden Westfall MD) Elevated PSA, greater than or equal to 20 ng/ml BPH (benign prostatic hyperplasia) Hepatitis C History of Mohs micrographic surgery for skin cancer Pain in right wrist Left sided sciatica Disorder of vein Chronic deep vein thrombosis (DVT) of popliteal vein of right lower extremity 2016 Raised prostate specific antigen Complete fecal incontinence Pt. denies this, states uriniation Localized edema Phlebosclerosis Hypertensive disorder Impotence Anemia Surgical History Hx of basal cell carcinoma excision Hx of tonsillectomy Social History Smoking/Tobacco Use Status: Current-Occasional Tobacco Type: cigars Smoking risk assessment performed?: Yes Alcohol Intake: current Alcohol Intake frequency: a few times a month Alcohol type: beer Drug use: Rarely Substance use type: former substance user Do you feel safe at home: Yes Do you feel safe in your relationship?: Yes Sign Out Sign Out Data: Sign Out Comment: CT Renal wo pending- L CVA tenderness, no urinary symptoms Last updated by Sadi Johnson PA at 05/05/24 15:14
--- NOTE | 2024-05-05 15:25 | ED.PROG_ITS ---
Date of service: 05/05/24 Time of Service: 16:01 Medical Decision Making In brief, this is an 83-year-old male patient with a history of prostate cancer, hypertension, who is presenting for evaluation of 1 week of left flank pain. At the time that I took over care of this patient from the other provider, his d isposition was pending completion of his laboratory workup and CT. Urinalysis was obtained and shows no hematuria or evidence of infection. Given the patient's lack of urinary symptoms, I do believe that the differential remains quite broad, and for this reason I did elect to obtain a CT scan with contrast. The patient had no leukocytosis, had a mild anemia but no thrombocytopenia, lactate was low at 0.5. I independently reviewed the patient CT scan and discussed the findings with the radiologist. The patient has extensive diverticulosis of the entire colon, with a small amount of free fluid in the pelvis concerning for complicated diverticulitis with microperforation. On my reassessment the patient remains with a benign abdominal examination, is hemodynamically appropriate and has not spiked a fever. This finding was shared with the patient. I did reach out to our general surgery team, who evaluated the patient at the bedside, and feel very reassured against complicated diverticulitis. They recommend holding antibiosis, treating musculoskeletal back pain as well as constipation (patient has magnesium citrate at home which he can use as needed), and the patient is understanding of this plan. He and his family member understands that they can return to care if he develops abdominal pain, fever or chills, or any other symptoms that cause him concern. He will follow-up with his outpatient providers. At this time, the patient has had a full medical evaluation and is safe for discharge to home. They are hemodynamically stable, ambulatory, and tolerating PO. They are understanding of the follow-up plan and return precautions. They left our facility without incident. Nely Laguerre MD Medical Records Medical records reviewed: Yes I reviewed the patient's medical records. Lab Data Lab results reviewed: Yes I reviewed the patient's lab results. Quality:SDOH Health Related Social Needs: No Data to Display Sign Out Sign Out Data: Sign Out Comment: CT Renal wo pending- L CVA tenderness, no urinary symptoms Last updated by Sadi Johnson PA at 05/05/24 15:14 Discharge Plan Disposition Patient Disposition: Home Condition: Stable Discharge Details Clinical Impression: Acute left-sided back pain, Diverticulosis, Acute constipation Primary Care Provider: Antonio Sandra ED Provider: Nely Laguerre Home Meds and New Rx's Prescriptions: New lidocaine 5 % adhesive patch,medicated 1 patch topical DAILY Qty: 30 0RF Rx Instructions: leave on most painful area for up to 12 hrs No Action sertraline [Zoloft] 25 mg tablet 25 mg PO DAILY ferrous sulfate 324 mg (65 mg iron) tablet,delayed release (DR/EC) 324 mg PO DAILY trazodone 50 mg tablet 50 mg PO DAILY lisinopril 20 mg tablet 30 mg PO DAILY Patient Comments: TAKE ONE TABLET BY MOUTH EVERY DAY Vitamin B-12 Tablet,Chewable 1 tab PO DAILY tamsulosin 0.4 mg capsule 0.8 mg PO DAILY Patient Comments: TAKE TWO CAPSULES BY MOUTH EVERY DAY Discharge Instructions Instructions: Low Back Pain ED Additional Instructions: You were seen in the emergency department today for evaluation of left flank pain. In our department you have a full physical examination performed, had laboratory studies that were reassuring, and had a CT scan performed. You have no kidney stones, and no evidence of urinary tract infection. You do have evid ence of diverticulosis of your colon, and did have some fluid in your pelvis which is seen sometimes in the setting of diverticulitis. This means that there could be an infection in your colon. You were evaluated by our general surgeon and at this time your examination is quite reassuring, and it is safe for us to employ watchful waiting strategy. We will provide you with a prescription for lidocaine patches, and you should continue to use Tylenol to manage your back pain. You need to follow-up with your primary care provider in the next few days for reassessment. You can return turn to the emergency department sooner, especially if you develop abdominal pain, fever or chills, or any other symptoms that cause you concern. Thank you for allowing us to be part of your care.
[2024-05-05 15:26] LABS: Bacteria Negative HPF (Negative); C & S Indicated? No; Casts Negative LPF (Negative); Crystals Negative HPF (Negative); Epithelial Cells Rare HPF (Negative); Mucus Negative (Negative); RBC Negative HPF (0-2); WBC 0-2 HPF (0-5)
[2024-05-05 15:44] LABS: Lactate 0.5 mmol/L (0.6-1.4)
[2024-05-05 15:45] LABS: Abs Immature Grans 0.03 10^3/uL (0.0-0.06); Absolute Basophil Count 0.03 10^3/uL (0.0-0.2); Absolute Eosinophil Count 0.16 10^3/uL (0.0-0.7); Absolute Lymphocyte Count 1.99 10^3/uL (1.2-3.4); Absolute Monocyte Count 0.79 10^3/uL (0.1-0.8); Absolute Neutrophil Count 3.32 10^3/uL (1.2-6.7); Basophils % 0.5 %; Eosinophils % 2.5 %; HCT 38.2 % (40.0-50.0); HGB 12.7 g/dL (13.5-17.5); Immature Grans % 0.5 %; Lymphocytes % 31.5 %; MCH 31.7 pg (27.0-33.0); MCHC 33.2 % (32.0-36.0); MCV 95 fL (80-95); MPV 9.7 fL (8.0-11.0); Monocytes % 12.5 %; Neutrophils % 52.5 %; Platelet Count 225 10^3/uL (130-400); RBC 4.01 10^6/uL (4.36-5.78); RDW 12.3 % (11.8-14.1); RDW-SD 43.5 fL; WBC 6.32 10^3/uL (4.4-10.8)
[2024-05-05 16:04] LABS: ALT 32 U/L (16-63); AST 24 U/L (15-37); Albumin 3.8 g/dL (3.4-5.0); Alkaline Phosphatase 88 U/L (46-116); Anion Gap 7.8 mmol/L (3-11); BUN 30 mg/dL (7-18); Bilirubin, Total 0.65 mg/dL (0.2-1.0); CO2 31.2 mmol/L (21.0-32.0); CREATININE 1.1 mg/dL (0.70-1.30); Calcium 10.1 mg/dL (8.5-10.1); Chloride 96 mmol/L (98-107); Estimated GFR 66.19 (mL/min/1.73m2); Glucose 88 mg/dL (74-106); Lipase 39 U/L (16-77); Potassium 4.4 mmol/L (3.5-5.1); Sodium 135 mmol/L (136-145); Total Protein 7.8 g/dL (6.4-8.2)
--- NOTE | 2024-05-05 16:42 | DI.CT_ITS ---
Exam(s) CT ABDOMEN PELVIS W EXAM: CT ABDOMEN PELVIS W CLINICAL HISTORY: L. flank pain, constipation. TECHNIQUE: Imaging Protocol: Axial computed tomography images with coronal and sagittal reformatted images were created and reviewed CONTRAST MATERIAL: Intravenous: Omnipaque-350 85cc Oral: None COMPARISON: CT CT ABDOMEN PELVIS W from 04/19/2023 FINDINGS: VISUALIZED LUNG BASES: No infiltrates nor pleural effusions.. Cardiomegaly ABDOMEN: There is no ascites. Moderate size hiatal hernia noted. LIVER: There are no focal hepatic lesions evident. No dilated intrahepatic ducts. GALLBLADDER/BILIARY: No obvious gallbladder pathology. CBD is not dilated. PANCREAS: No evidence of pancreatic mass nor dilatation of the pancreatic duct. SPLEEN: Spleen is not enlarged. No obvious intrasplenic lesions. Splenic and portal veins are paten t. ADRENALS: There are no significant adrenal masses. KIDNEYS:There is a benign cyst again noted in the lateral cortex of the right kidney which measures 1 .7 by 1.6 cm and does not require further investigation. A smaller cyst is also noted in the opposit e-left kidney similar location measuring 0.7 cm. Also does not require further workup. There are no solid lesions in either kidney. No calculi. No hydronephrosis. No hydroureter. There are no radi opaque calculi in the urinary bladder lumen. Urinary bladder is again noted to be diffusely thickene d and trabeculated.. ABDOMINAL AORTA: Abdominal aorta is not enlarged. LYMPH NODES:There is no retroperitoneal nor paraaortic adenopathy. ABDOMINAL WALL: There is an anterior abdominal wall hernia mesh again noted. GI: There is abundant fecal material in the right-side of the colon. There is extensive diverticulos is of the entire left side of the colon and sigmoid.. Cannot exclude subtle case of diverticulitis g iven the extensive involvement of the left side of the colon and sigmoid plus the fact that there is a small amount of free fluid in the dependent left side of the pelvis. PELVIS: GI: Appendix cannot be identified as a separate structure. LYMPH NODES: There is no intrapelvic nor inguinal adenopathy. REPRODUCTIVE: Prostate size upper normal. URINARY BLADDER: Diffusely thickened and trabeculated. OSSEOUS: No fractures and no significant osseous lesions. 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 IMPRESSION: 1. There is extensive diverticulosis of the left side of the and below the level of the splenic flexu re of the colon and also with severe diverticulosis of the entire sigmoid. There is a small amount o f free fluid in the lower left pelvis in this male patient. Suspect that there might be acute subtle diverticulitis which is somewhat difficult to delineate given the extensive involvement of the left side of the colon with diverticuli. 2. Appendix cannot be identified. 3. Moderate size retrocardiac hiatal hernia. Report called by myself to ER sudhir 05/05/2024 at 5:15 p.m. RADIATION DOSE DELIVERED: 260.55mGy.cm Total DLP DATA REPOSITORY: All CT scans at this facility are submitted to the National Radiology Data Registry (NRDR) Dose Index Registry (DIR) with the [employer] (ACR). RADIATION OPTIMIZATION: All CT scans at this facility use at least one of these dose optimization te chniques: automated exposure control; mA and/or kV adjustment per patient size (includes targeted exa ms where dose is matched to clinical indication); or iterative reconstruction.
[2024-05-05] MEDS: Normal Saline - Diluent 50 ML VIAL IJ (16:43)
[2024-05-05] MEDS: Omnipaque 350 MG/ML 100 ML BTL 85 ML IJ (16:44)
--- NOTE | 2024-05-05 17:33 | SCONE_ITS ---
Date of service: 05/05/24 Time of Service: 17:33 Assessment and Plan Assessment and plan (1) Hypertensive disorder: (2) Chronic deep vein thrombosis (DVT) of popliteal vein of right lower extremity: (3) Hepatitis C: (4) BPH (benign prostatic hyperplasia): (5) Anemia: Assessment and plan: Continue iron supplementation (6) Prostate cancer: Status: Chronic Assessment and plan: Chief complaint: Prostate cancer This is an 83-year-old gentleman who has a history of adenocarcinoma the prostate. His [place] score was up to 4+ 3 out of 10. He had perineural invasion and intraductal carcinoma. We did not identify extraprostatic metastasis, but the patient was not interested in radiation based therapies. He has elected to be treated with Lupron alone. He is pretreatment PSA was 46 ng/mL. His PSA is responded quite well to his injections. He does have a few hot flashes. He feels like he is losing weight and strength. He has not gone into retention. Per Dr. Westfall Patient should follow-up with Dr. Westfall for continued treatment of his prostate cancer as previously scheduled. (7) Chronic constipation: Status: Acute Assessment and plan: Senna twice daily and psyllium twice daily until and avoid straining to move the bowels. (8) Diverticulosis: Status: Acute Assessment and plan: I did personally review his CT and labs. No signs whatsoever of acute abdominal problem at this time. He has no abdominal pain. He is hungry. I think this is more mechanical back pain. I did discuss this with Dr. Laguerre. Will treat him mechanical back pain. I discussed starting a fiber supplement with his daughter. He could also try doing senna twice a day for more regular bowel function Clinically he has no abdominal pain and no signs of any intra-abdominal infection. I do see in the fluid which is around the rectum that radiology was alluding to. I think this is more related to his prostate cancer rather than would in the pelvis from an acute diverticulitis. The CT was done without contrast. Patient has very minimal body fat which does make interpreting the CT difficult. 30 mins spent in direct pt care and 15 in non face to face time History of Present Illness Narrative: Patient is a 83-year-old male who presents to the ER complaining of back pain. Is not has been going on approximately for a week. Nothing seems to make it worse or better. He denies any fever or chills. He denies any nausea or vomiting. He denies any abdominal pain. He has a longstanding history of constipation. He has severe diverticula on CT scan. He denies any bleeding with bowel movements. He says his appetite has been good. He did come today. He does have a history of prostate cancer. This is being treated with Lupron only. He has not had any radiation. He does appear quite frail and underweight. He does have a history of anemia and is on iron. Hemoglobin is 12.7 today. Patient does endorse that he does have to strain quite a bit in order to move his bowels. When I do palpate his abdomen particularly in the right lower quadrant there is no abdominal pain whatsoever. His pain seems to be over the paraspinal muscles left lower lumbar area. It is not worse if he extends or flexes his spine. It is not worse with movement of his left hip. He denies any trauma. He denies any chest pain or shortness of breath. There is no leg pain or swelling. He does not have loss of bowel or bladder control. ED notes: n brief, this is an 83-year-old male patient with a history of prostate cancer, hypertension, who is presenting for evaluation of 1 week of left flank pain. At the time that I took over care of this patient from the other provider, his disposition was pending completion of his laboratory workup and CT. Urinalysis was obtained and shows no hematuria or evidence of infection. Review of Systems All systems reviewed & are unremarkable except as noted in HPI and below PFSH All Active Problems (Updated 05/08/24 @ 11:13 by Annabella Hoskins DO) Chronic constipation (Acute) Acute constipation (Acute) Diverticulosis (Acute) Acute left-sided back pain (Acute) Prostate cancer (Chronic) Medical History (Updated 05/08/24 @ 11:13 by Annabella Hoskins DO) Elevated PSA, greater than or equal to 20 ng/ml BPH (benign prostatic hyperplasia) Hepatitis C History of Mohs micrographic surgery for skin cancer Pain in right wrist Left sided sciatica Disorder of vein Chronic deep vein thrombosis (DVT) of popliteal vein of right lower extremity 2015 Raised prostate specific antigen Complete fecal incontinence Pt. denies this, states uriniation Localized edema Phlebosclerosis Hypertensive disorder Impotence Anemia Surgical History Hx of basal cell carcinoma excision Hx of tonsillectomy Social History Smoking/Tobacco Use Status: Current-Occasional Tobacco Type: cigars Smoking risk assessment performed?: Yes Alcohol Intake: current Alcohol Intake frequency: a few times a month Alcohol type: beer Drug use: Rarely Substance use type: former substance user Do you feel safe at home: Yes Do you feel safe in your relationship?: Yes Exam Narrative Exam Narrative: PHYSICAL EXAM GENERAL APPEARANCE: Alert, healthy appearance, oriented, x 3,? in no acute distress HYDRATION: Well hydrated HEAD, EYES, EARS, NECK, THROAT: Head is normocephalic, pupils equal, round, reactive to light and accommodation, ocular movement intact, sclera clear and no jaundice. ?Dentition intact. -poor He does have severe scoliosis and osteoporosis/pi?a LUNGS: normal respiration/normal chest excursion. ?Clear to auscultation bilaterally. ?No wheeze. ?HEART: Regular rate and rhythm. no murmurs EXTREMITY: No edema or cyanosis.? no leg pain, redness, swelling.? ABDOMEN: soft and non-tender to palpation.? Normal bowel sounds.? No abdominal pain with deep palpation. No rebound or guarding. Results Last Vital Signs Temp 36.9 C 05/05/24 14:56 Pulse 56 L 05/05/24 14:56 Resp 16 05/05/24 14:56 BP 199/78 H 05/05/24 14:56 Pulse Ox 96 05/05/24 14:56 Labs 05/05/24 15:38 05/05/24 15:38 Labs: Laboratory Results - last 24 hr 05/05/24 05/05/24 14:42 15:38 WBC 6.32 RBC 4.01 L Hgb 12.7 L Hct 38.2 L MCV 95 MCH 31.7 MCHC 33.2 RDW 12.3 Plt Count 225 MPV 9.7 Immature Gran % 0.5 Neutrophils % 52.5 Lymphocytes % 31.5 Monocytes % 12.5 Eosinophils % 2.5 Basophils % 0.5 Nucleated RBC % 0.0 Absolute Neutrophils 3.32 Absolute Lymphocytes 1.99 Absolute Monocytes 0.79 Absolute Eosinophils 0.16 Absolute Basophils 0.03 VBG Lactate 0.5 L Sodium 135 L Potassium 4.4 Chloride 96 L Carbon Dioxide 31.2 Anion Gap 7.8 BUN 30 H Creatinine 1.1 Est GFR (CKD-EPI 2020) 66.19 Glucose 88 Calcium 10.1 Total Bilirubin 0.65 AST 24 ALT 32 Alkaline Phosphatase 88 Total Protein 7.8 Albumin 3.8 Lipase 39 Urine Color Yellow Urine Clarity Clear Urine pH 5.0 Ur Specific [place] 1.020 Urine Protein 30 H Urine Ketones Negative Urine Blood Negative Urine Nitrite Negative Urine Bilirubin Negative Urine Urobilinogen 0.2 Ur Leukocyte Esterase Negative Urine RBC Negative Urine WBC 0-2 Ur Epithelial Cells Rare Urine Crystals Negative Urine Bacteria Negative Urine Casts Negative Urine Mucus Negative Ur Culture Indicated? No Urine Glucose Negative
[2024-05-05 18:18] VITALS: BP 188/89; PULSE 78; RESP 18; O2SAT 98
[2024-05-05] MEDS: Acetaminophen 500 MG TAB 1000 MG PO (18:18)
[2024-05-05] MEDS: Lidocaine 5% Patch 1 PATCH TP (18:18)
== END 2024-05-05 18:22 | disposition home or self-care (01) ==
PROVIDERS: Physician Assistant; Emergency Provider Emergency Medicine; PCP Family Medicine
DX: K59.00 Constipation, unspecified; K57.90 Diverticulosis of intestine, part unspecified, without perforation or abscess without bleeding; M54.9 Dorsalgia, unspecified; Z85.46 Personal history of malignant neoplasm of prostate; I10 Essential (primary) hypertension
CPT/HCPCS: 00123; 80053; 83690; 99283; 99285; 74177; 81003; 81015; 83605; 85025; 99284; J3490

== ENCOUNTER → 2024-06-12 15:43 | Outpatient (BNVA) | payer MEDICARE, SELFPAY | PROVIDERS: PCP Family Medicine; Referring Provider Family Medicine; Visit Provider Urology | DX: C61 Malignant neoplasm of prostate (principal) | CPT/HCPCS: 96402; J9217 ==

== ENCOUNTER → 2024-10-23 14:30 | Outpatient (BNVA) | payer MEDICARE, SELFPAY | PROVIDERS: PCP Family Medicine; Referring Provider Family Medicine; Visit Provider Urology | DX: C61 Malignant neoplasm of prostate (principal); R39.9 Unspecified symptoms and signs involving the genitourinary system; R41.3 Other amnesia; R63.4 Abnormal weight loss; M25.552 Pain in left hip; R35.0 Frequency of micturition; N39.41 Urge incontinence; R15.2 Fecal urgency | CPT/HCPCS: 51798; 96402; 99214; J9217 ==

== ENCOUNTER 2024-11-02 11:46 | Emergency (ER) | payer MEDICARE, SELFPAY ==
[2024-11-02] VITALS (9 sets, daily range): BP systolic 172–233; BP diastolic 79–106; PULSE 59–101; RESP 16; TEMP 36.2–36.9; O2SAT 97–99
--- NOTE | 2024-11-02 14:06 | ED.GENADUL_ITS ---
Discharge Plan Disposition Patient Disposition: Home Condition: Stable Discharge Details Clinical Impression: Acute lower GI bleeding Primary Care Provider: Antonio Sandra ED Provider: James France Home Meds and New Rx's Prescriptions: Continued sertraline [Zoloft] 25 mg tablet 25 mg PO DAILY ferrous sulfate 324 mg (65 mg iron) tablet,delayed release (DR/EC) 324 mg PO DAILY mirabegron [Myrbetriq] 25 mg tablet extended release 24 hr 25 mg PO DAILY Qty: 30 4RF trazodone 50 mg tablet 50 mg PO DAILY meloxicam 7.5 mg tablet 7.5 mg PO DAILY lidocaine 5 % adhesive patch,medicated 1 patch topical DAILY Qty: 30 0RF Rx Instructions: leave on most painful area for up to 12 hrs lisinopril 20 mg tablet 30 mg PO DAILY Patient Comments: TAKE ONE TABLET BY MOUTH EVERY DAY cyanocobalamin (vitamin B-12) Tablet,Chewable 1 tab PO DAILY tamsulosin 0.4 mg capsule 0.8 mg PO DAILY Patient Comments: TAKE TWO CAPSULES BY MOUTH EVERY DAY Discharge Instructions Additional Instructions: Your blood work and CAT scan did not show any concerning findings at this time. I placed you on our follow-up list to see general surgery for possible colonoscopy. Avoid taking any NSAIDs such as naproxen or ibuprofen as well as aspirin. If you feel more ill or have severe abdominal pain or feel short of breath or difficulty breathing return to the emergency department for reevaluation. HPI General Mode of arrival: ambulatory . Date/Time Provider Initiated Documentation: 11/02/24 12:04 . Limitations to Documentation: no limitations . Information obtained by: patient . History of Present Illness 84 year old M presents to the emergency department with the chief complaint of blood with bowel movements, described as moderate, Patient started experiencing this day(s) (3) and it has been other (improving). No relieving factors improve symptom(s), No exacerbating factors reported . Patient notes no other symptoms.. Patient did receive the following treatments prior to arrival, none Related Data Home Medications ?Medication ?Instructions ?Recorded ?Confirmed cyanocobalamin (vitamin B-12) 1 tab PO DAILY 05/15/21 11/02/24 lisinopril 20 mg tablet 30 mg PO DAILY 05/15/21 11/02/24 trazodone 50 mg tablet 50 mg PO DAILY 12/11/22 11/02/24 tamsulosin 0.4 mg capsule 0.8 mg PO DAILY 12/15/22 11/02/24 ferrous sulfate 324 mg (65 mg 324 mg PO DAILY 08/31/23 11/02/24 iron) tablet,delayed release sertraline 25 mg tablet (Zoloft) 25 mg PO DAILY 08/31/23 11/02/24 lidocaine 5 % topical patch 1 patch topical DAILY #30 ea 05/05/24 11/02/24 meloxicam 7.5 mg tablet 7.5 mg PO DAILY 10/20/24 11/02/24 mirabegron 25 mg tablet,extended 25 mg PO DAILY #30 tabs 10/23/24 11/02/24 release 24 hr (Myrbetriq) Previous Rx's ?Medication ?Instructions ?Recorded lidocaine 5 % topical patch 1 patch topical DAILY #30 ea 05/05/24 mirabegron 25 mg tablet,extended 25 mg PO DAILY #30 tabs 10/23/24 release 24 hr (Myrbetriq) Allergies Allergy/AdvReac Type Severity Reaction Status Date / Time Penicillins Allergy Unknown Unknown Unverified 11/02/24 11:54 General Stated Complaint: GI Bleed CODY: 3 Review of Systems All systems reviewed & are unremarkable except as noted in HPI and below Constitutional Constitutional: Denies chills, Denies fever(s) and Denies weakness Cardiovascular Cardiovascular: Denies chest pain and Denies dyspnea Respiratory Respiratory: Denies cough and Denies dyspnea Gastrointestinal Gastrointestinal: Denies abdominal pain, Reports hematochezia, Denies nausea and Denies vomiting Neurologic Neurologic: Denies weakness Exam Const General: no acute distress Orientation: alert [facility] Head: normal to inspection Ears: external ears normal General nose exam: external nose normal Mouth: moist mucous membranes Eyes General: appearance normal, both eyes and all related structures Neck Neck: normal visual inspection Resp Effort & Inspection: normal respiratory effort and able to speak in complete sentences Cardio Rate: regular rate GI Palpation: soft and nontender Skin General skin exam: no rashes or lesions noted Neuro General: patient alert and patient oriented x3 Extrem General: normal to inspection Psych Mental Status: mental status grossly normal Course Vital Signs Vital signs: Vital Signs Temperature 36.9 C 11/02/24 11:52 Pulse 69 11/02/24 11:52 Respiratory Rate 16 11/02/24 11:52 Blood Pressure 175/85 H 11/02/24 11:52 Pulse Oximetry 98 11/02/24 11:52 Temperature 36.2 C L 11/02/24 13:25 Temperature Source Tympanic 11/02/24 13:25 Pulse 59 L 11/02/24 13:25 Respiratory Rate 16 11/02/24 11:52 Blood Pressure 172/79 H 11/02/24 13:25 Blood Pressure Mean 110 11/02/24 13:25 Pulse Oximetry 99 11/02/24 13:25 Oxygen Delivery Method Room Air 11/02/24 13:25 Oxygen Flow Rate 0 11/02/24 13:25 Pain Level 0 11/02/24 13:25 Medical Decision Making 84-year-old male with a history of prostate cancer, hypertension who comes in with 3 days of bright red blood per rectum which he says is improving when he had a bowel movement today. He denies any vomiting, abdominal pain, fevers. He is well-appearing on exam. He has no abdominal tenderness. On rectal exam he has no visible hemorrhoids he does have dried blood on his buttocks, no active bleeding, no currently. No blood on glove when inserted. Will proceed with CBC, CMP, type and screen and coags and obtain CT of the abdomen pelvis to further evaluate. Labs show no significant changes from baseline, has mild anemia which is not significantly changed. He is stable and feels well. I offered admission which he declined which I feel is reasonable given the reassuring workup today. CT shows no significant emergent findings. I am placing him on the follow-up list to follow-up with general surgery soon as possible for colonoscopy if this continues. Return precautions given Differential Diagnosis Differential Diagnosis: Hemorrhoids, tumor, AVM Medical Records Medical records reviewed: Yes I reviewed the patient's medical records. Lab Data Lab results reviewed: Yes I reviewed the patient's lab results. Quality:SDOH Health Related Social Needs: No Data to Display PFSH All Active Problems (Updated 11/02/24 @ 16:39 by James France MD) Acute lower GI bleeding (Acute) Chronic constipation (Acute) Prostate cancer (Chronic) Medical History (Updated 11/02/24 @ 16:39 by James France MD) Elevated PSA, greater than or equal to 20 ng/ml BPH (benign prostatic hyperplasia) Hepatitis C History of Mohs micrographic surgery for skin cancer Pain in right wrist Left sided sciatica Disorder of vein Chronic deep vein thrombosis (DVT) of popliteal vein of right lower extremity 2016 Raised prostate specific antigen Complete fecal incontinence Pt. denies this, states uriniation Localized edema Phlebosclerosis Hypertensive disorder Impotence Anemia Surgical History Hx of basal cell carcinoma excision Hx of tonsillectomy Social History Smoking/Tobacco Use Status: Current-Occasional Tobacco Type: cigars Smoking risk assessment performed?: Yes Alcohol Intake: current Alcohol Intake frequency: a few times a month Alcohol type: beer Drug use: Rarely Substance use type: former substance user Do you feel safe at home: Yes Do you feel safe in your relationship?: Yes
--- NOTE | 2024-11-02 14:15 | DI.CT_ITS ---
Exam(s) CT ABDOMEN PELVIS CTA EXAM: CT ABDOMEN PELVIS CTA CLINICAL HISTORY: lower gi bleed. TECHNIQUE: Imaging Protocol: Axial CT angiography was performed with multi-slice acquisition and m ulti-planar and/or 3D reconstructions. CONTRAST MATERIAL: Intravenous: Omnipaque 350 Contrast volume:100mL Oral: No COMPARISON: CT CT ABDOMEN PELVIS W from 05/05/2024 FINDINGS: ABDOMEN AND PELVIS: Abdomen: Celiac axis/mesenteric arteries: No evidence of occlusion or significant stenosis. Renal Arteries: No evidence of occlusion or significant stenosis. Atherosclerotic calcifications seen in the proximal renal arteries bilaterally. Aorta: No evidence of occlusion or significant stenosis. No aneurysm or dissection. Atherosclerotic calcification is present. Pelvis: Iliac Arteries: No evidence of occlusion or significant stenosis. Atherosclerotic calcification is p resent bilaterally. Common Femoral Arteries: No evidence of occlusion or significant stenosis. Atherosclerotic calcifica tion is present bilaterally. ABDOMEN: Lung bases: Cardiomegaly. Liver: Normal density. No measurable mass. Portal, Superior Mesenteric, and Splenic Veins: Unremarkable. Gallbladder and Biliary Tract: No radiodense calculus or dilation. Pancreas: Normal density, no abnormal calcifications or inflammatory process. Spleen: Normal. Adrenals: No masses seen. Kidneys: Normal size, contour and axis. No radiodense stones or obstructive uropathy. There are bilat eral simple renal cysts. No follow-up is recommended. Bowel: There is colonic diverticulosis. No evidence of acute diverticulitis is present. The stomach is incompletely distended limiting evaluation. No evidence of bowel obstruction or bowel wall thick ening is seen. No evidence of pneumatosis. No portal venous gas is present. No evidence of appendi citis. No evidence of active gastrointestinal bleeding. Peritoneal Cavity: No ascites, collection or mesenteric inflammatory response. No free air. Lymph Nodes: Within normal limits. Bones: Old left rib fracture deformities are present. There is a mild compression fracture deformity of the superior endplate of T11. This was not present on the prior examination from 05/05/2024. The re is loss of less than 20 percent of the height of the vertebral body anteriorly. No retropulsion i s seen. No resultant central spinal canal stenosis is present. Age-appropriate degenerative changes are seen in the lumbar spine. Soft Tissues: There is edema seen in the soft tissues. PELVIS: Bladder: Symmetric distention, no gross wall thickening. Reproductive Organs: Unremarkable as visualized. Lymph Nodes: Within normal limits. Bones: Within normal limits. IMPRESSION: 1. No evidence of active gastrointestinal bleeding. 2. Colonic diverticulosis without evidence of acute diverticulitis. 3. New superior compression fracture deformity of T11 since 05/05/2024. This may represent a subacute fracture. There is loss of less than 20 percent of the height of the vertebral body anteriorly. No result in central spinal canal stenosis is present. 4. No evidence of abdominal aortic aneurysm or dissection. RADIATION DOSE DELIVERED: 642.79mGy.cm Total DLP DATA REPOSITORY: All CT scans at this facility are submitted to the National Radiology Data Registry (NRDR) Dose Index Registry (DIR) with the [employer] (A[employer]). RADIATION OPTIMIZATION: All CT scans at this facility use at least one of these dose optimization te chniques: automated exposure control; mA and/or kV adjustment per patient size (includes targeted exa ms where dose is matched to clinical indication); or iterative reconstruction.
[2024-11-02 14:18] LABS: Bilirubin Negative (Negative); Blood Negative (Negative); Clarity Clear (Clear); Glucose Negative (Negative); Ketones Negative (Negative); Leukocyte Esterase Negative (Negative); Nitrite Negative (Negative); Specific Gravity 1.025 (1.005-1.025); Urobilinogen 0.2 mg/dL (Up to 0.2); pH 5.5 (5-8)
[2024-11-02 14:28] LABS: Bacteria Few HPF (Negative); C & S Indicated? No; Casts Negative LPF (Negative); Crystals Negative HPF (Negative); Epithelial Cells Rare HPF (Negative); Mucus Trace (Negative); RBC Negative HPF (0-2); WBC 0-2 HPF (0-5)
[2024-11-02 14:32] LABS: Abs Immature Grans 0.02 10^3/uL (0.0-0.06); Absolute Basophil Count 0.03 10^3/uL (0.0-0.2); Absolute Eosinophil Count 0.16 10^3/uL (0.0-0.7); Absolute Lymphocyte Count 2.38 10^3/uL (1.2-3.4); Absolute Monocyte Count 0.82 10^3/uL (0.1-0.8); Absolute Neutrophil Count 3.05 10^3/uL (1.2-6.7); Basophils % 0.5 %; Eosinophils % 2.5 %; HCT 37.5 % (40.0-50.0); HGB 12.1 g/dL (13.5-17.5); Immature Grans % 0.3 %; Lymphocytes % 36.8 %; MCH 32.2 pg (27.0-33.0); MCHC 32.3 % (32.0-36.0); MCV 100 fL (80-95); MPV 10.6 fL (8.0-11.0); Monocytes % 12.7 %; Neutrophils % 47.2 %; Platelet Count 191 10^3/uL (130-400); RBC 3.76 10^6/uL (4.36-5.78); RDW 13.1 % (11.8-14.1); RDW-SD 47.9 fL; WBC 6.46 10^3/uL (4.4-10.8)
[2024-11-02 14:48] LABS: INR 1.1 (0.9-1.1); PTT Activated 29.6 sec (20.6-30.2); Prothrombin Time 10.7 sec (9.1-11.1)
[2024-11-02 14:50] LABS: ALT 32 U/L (16-63); AST 27 U/L (15-37); Albumin 3.6 g/dL (3.4-5.0); Alkaline Phosphatase 78 U/L (46-116); Anion Gap 4.8 mmol/L (3-11); BUN 35 mg/dL (7-18); Bilirubin, Total 0.6 mg/dL (0.2-1.0); CO2 31.2 mmol/L (21.0-32.0); CREATININE 1.2 mg/dL (0.70-1.30); Calcium 9.9 mg/dL (8.5-10.1); Chloride 108 mmol/L (98-107); Estimated GFR 59.26 (mL/min/1.73m2); Glucose 79 mg/dL (74-106); Magnesium 1.8 mg/dL (1.8-2.4); Potassium 4.1 mmol/L (3.5-5.1); Sodium 144 mmol/L (136-145)
[2024-11-02] MEDS: Normal Saline - Diluent 50 ML VIAL IJ (15:25)
[2024-11-02] MEDS: Omnipaque 350 MG/ML 100 ML BTL IJ (15:27)
== END 2024-11-02 16:48 | disposition home or self-care (01) ==
PROVIDERS: Emergency Provider Emergency Medicine; PCP Family Medicine
DX: K92.1 Melena (principal); K92.2 Gastrointestinal hemorrhage, unspecified; I10 Essential (primary) hypertension; F17.290 Nicotine dependence, other tobacco product, uncomplicated; Z85.46 Personal history of malignant neoplasm of prostate; Z86.718 Personal history of other venous thrombosis and embolism
CPT/HCPCS: 36415; 80053; 86850; 86900; 86901; 99285; 74174; 81003; 81015; 83735; 85025; 85610; 85730; 99284; J3490

== ENCOUNTER → 2024-12-21 09:23 | Outpatient (BNVA) | payer MEDICARE, SELFPAY | PROVIDERS: PCP Family Medicine; Referring Provider Urology; Visit Provider Nurse Practitioner Adult Health | DX: R41.3 Other amnesia (principal); R29.6 Repeated falls; I10 Essential (primary) hypertension; C61 Malignant neoplasm of prostate | CPT/HCPCS: 99215; G2212 ==

== ENCOUNTER → 2025-01-26 10:36 | Outpatient (BNVA) | payer MEDICARE, SELFPAY | PROVIDERS: PCP Family Medicine; Visit Provider Urology | DX: R23.2 Flushing (principal); T50.905A Adverse effect of unspecified drugs, medicaments and biological substances, initial encounter; C61 Malignant neoplasm of prostate; R35.0 Frequency of micturition | CPT/HCPCS: 99214; 36415; 84153 ==

== ENCOUNTER 2025-01-26 11:15 | Outpatient (CLI) | payer MEDICARE, SELFPAY | END 2025-01-26 11:16 | disposition home or self-care (01) | PROVIDERS: PCP Family Medicine; Visit Provider Urology | DX: C61 Malignant neoplasm of prostate (principal) | CPT/HCPCS: 36415; 84153 ==

== ENCOUNTER → 2025-04-10 10:16 | Outpatient (BNVA) | payer MEDICARE, SELFPAY | PROVIDERS: PCP Family Medicine; Referring Provider Family Medicine; Visit Provider Student in an Organized Health Care Education/Training Program | DX: K92.1 Melena (principal); R53.1 Weakness; R53.83 Other fatigue; R63.4 Abnormal weight loss | CPT/HCPCS: 99214 ==

== ENCOUNTER → 2025-04-17 11:10 | Outpatient (BNVA) | payer MEDICARE, SELFPAY | PROVIDERS: PCP Family Medicine; Referring Provider Family Medicine; Visit Provider Student in an Organized Health Care Education/Training Program | DX: K92.1 Melena (principal) | CPT/HCPCS: 99213 ==

== ENCOUNTER 2025-05-01 01:19 | Outpatient (CLI) | payer MEDICARE, SELFPAY | END 2025-05-01 01:20 | disposition home or self-care (01) | LOC: LBO 01:19 | PROVIDERS: PCP Family Medicine; Visit Provider Urology | DX: C61 Malignant neoplasm of prostate (principal) | CPT/HCPCS: 36415; 84153 ==

== ENCOUNTER → 2025-05-24 13:33 | Outpatient (BNVA) | payer MEDICARE, SELFPAY | PROVIDERS: PCP Family Medicine; Referring Provider Family Medicine; Visit Provider Urology | DX: C61 Malignant neoplasm of prostate (principal) | CPT/HCPCS: 96402; J9217 ==